=== PATIENT | male | born 1950 | race Caucasian/White ===

== ENCOUNTER 2019-06-08 14:06 | Inpatient (IN) | payer OTHER, BC ==
[2019-06-08] MEDS ORDERED: ASPIRIN 81 MG CHEWABLE TABLETS PO ONE (14:19)
--- NOTE | 2019-06-08 14:19 | PDOC ---
Rapid Medical Evaluation Time Seen by Provider: 06/08/19 14:16 Medical Evaluation: Allergies Allergy/AdvReac Type Severity Reaction Status Date / Time No Known Allergies Allergy Verified 03/04/14 13:11 06/08/19 14:16 HPI: Sent by PCP for abnormal EKG Dr Stern PE: No gross deficits ORDERS: Cardiac work up and CXR EKG with 3 PVC's and sinus tachycardia Discharge Disposition - Diagnosis Abnormal EKG - Referrals - Patient Instructions - Post Discharge Activity
[2019-06-08] MEDS ORDERED: ASPIRIN 81 MG CHEWABLE TABLETS ONE (14:58)
[2019-06-08] MEDS ORDERED: ADENOSINE 6 MG/2 ML VIAL IVPUSH ONE ×3 (15:08→15:12)
[2019-06-08] MEDS ORDERED: dilTIAZem HCL 125 MG/25 ML - 25 ML VIAL ONE (15:22)
[2019-06-08] MEDS ORDERED: dilTIAZem HCL 50 MG/10 ML - 10 ML VIAL IVPUSH ONE (15:25)
[2019-06-08] MEDS ORDERED: dilTIAZem HCL 30 MG TABLET (FP) PO ONE (15:26)
[2019-06-08 15:29] LABS: BASO % 1.1 % (0-2.0); EOS % 3.6 % (0-4.5); HEMATOCRIT 42.5 % (35.4-49); HEMOGLOBIN 14.1 GM/dL (11.7-16.9); LYMPH % 25.8 % (8-40); MCH 32.4 pg (25.7-33.7); MCHC 33.1 g/dl (32.0-35.9); MEAN CELL VOLUME 97.7 fl (80-96); MEAN PLT VOLUME 7.6 fl (7.5-11.1); MONO % 9.8 % (3.8-10.2); NEUT % 59.7 % (42.8-82.8); RBC 4.35 M/mm3 (4.00-5.60); RDW 13.9 % (11.9-15.9)
--- NOTE | 2019-06-08 15:35 | PDOC ---
History of Present Illness - General Chief Complaint: Irregular Heart Beat Stated Complaint: SENT BY PCP / CARDIOLOGY Time Seen by Provider: 06/08/19 14:16 History Source: Patient Exam Limitations: No Limitations - History of Present Illness Initial Comments: 06/08/19 15:28 68 yo male pmh hypertension presents to the ED from PCP office for sinus tach with PVCs. Pt admits to dizzy spells while ambulating a few times over the last week but denies CP, SOB, palpitations, weakness, CH, changes in vision. EKG on arrival to ED shows likely slow SVT with rates in the 130s. Pt is stable, 2 attempts of with vagal maneuvers done (blowing against a closed glottis paired with leg raising) failed to revert rhythm. Decision made to use adenosine 12 mg to either treat SVT or slow rhythm down to diagnose. pt on monitor, 12 lead set up and rhythm strip running. 12 mg adenosine given and rate fell into the 60s then went back up to the 130s. Rhythm strip shows pt is in a flutter when rate dropped. Pt then given 10 Dilt IV and 30 dilt PO BP on arrival in the 160s systilic Past History - Past Medical History Allergies/Adverse Reactions: Allergies Allergy/AdvReac Type Severity Reaction Status Date / Time No Known Allergies Allergy Verified 06/08/19 14:17 Home Medications: Ambulatory Orders Apixaban [Eliquis -] 5 mg PO BID 30 Days #60 tablet 06/10/19 Diltiazem Cd [Cardizem Cd -] 360 mg PO DAILY #30 cap.cd.24h 06/10/19 Anemia: No Asthma: No Cancer: No Cardiac Disorders: No CVA: No COPD: No CHF: No Dementia: No Diabetes: No GI Disorders: Yes (H PYLORI) Disorders: No HTN: Yes Hypercholesterolemia: No Liver Disease: No Seizures: No Thyroid Disease: No - Surgical History Abdominal Surgery: Yes (COLON RESECTION) Appendectomy: No Cardiac Surgery: No Cholecystectomy: No Lung Surgery: No Neurologic Surgery: No Orthopedic Surgery: Yes (R KNEE REPLACEMENT,L SHOULDER ARTHROSCOPY) - Suicide/Smoking/Psychosocial Hx Smoking History: Unknown if ever smoked Have you smoked in the past 12 months: Yes Number of Cigarettes Smoked Daily: 0 Cigars Per Day: 1 Hx Alcohol Use: Yes (SOCIALLY) Drug/Substance Use Hx: No Substance Use Type: Alcohol Hx Substance Use Treatment: No Review of Systems - Review of Systems Constitutional: No: Chills, Fever HEENTM: No: Blurred Vision Respiratory: No: Shortness of Breath Cardiac (ROS): Yes: Lightheadedness (on ambulation intermittenly over the last 1 week). No: Chest Pain, Edema, Irregular Heart Rate, Palpitations ABD/GI: No: Constipated, Diarrhea, Nausea, Vomiting : No: Burning, Dysuria Musculoskeletal: No: Back Pain Integumentary: No: Change in Color Neurological: No: Headache, Numbness, Paresthesia, Weakness, Ataxia *Physical Exam - Vital Signs Last Vital Signs Temp Pulse Resp BP Pulse Ox 97.9 F 133 H 18 157/108 H 97 06/08/19 14:06/08/19 14:06/08/19 14:06/08/19 14:06/08/19 14:19 - Physical Exam General Appearance: Yes: Nourished, Appropriately Dressed. No: Apparent Distress HEENT: positive: EOMI, Normal Voice Neck: positive: Supple. negative: Carotid bruit Respiratory/Chest: positive: Lungs Clear, Normal Breath Sounds. negative: Accessory Muscle Use, Crackles, Rales, Rhonchi, Wheezing Cardiovascular: positive: Tachycardia, Other (A flutter). negative: Edema, JVD , Murmur Vascular Pulses: Dorsalis-Pedis (R): 4+, Doralis-Pedis (L): 4+ Gastrointestinal/Abdominal: positive: Flat, Soft. negative: Distended, Guarding , Rebound Musculoskeletal: positive: Normal Inspection. negative: CVA Tenderness Extremity: positive: Normal Capillary Refill, Normal Inspection Integumentary: positive: Normal Color, Dry, Warm Neurologic: positive: metal model builder II-XII NML intact, Fully Oriented, Alert, Normal Mood/ Affect, Normal Response, Motor Strength / ED Treatment Course - LABORATORY CBC & Chemistry Diagram: 06/09/19 05:30 06/09/19 05:30 - Medications Given in the ED: ED Medications Discontinued Medications Generic Name Dose Route Start Last Admin Trade Name Freq PRN Reason Stop Dose Admin Aspirin 162 mg 06/08/19 14:19 06/08/19 15:05 Asa - PO 06/08/19 14:20 162 mg ONCE ONE Administration Medical Decision Making - Medical Decision Making 06/08/19 16:19 68 yo male pmh hypertension presents to the ED from PCP office for sinus tach with PVCs. Pt admits to dizzy spells while ambulating a few times over the last week but denies CP, SOB, palpitations, weakness, CH, changes in vision. EKG on arrival to ED shows likely slow SVT with rates in the 130s. Pt is stable, 2 attempts of with vagal maneuvers done (blowing against a closed glottis paired with leg raising) failed to revert rhythm. Decision made to use adenosine 12 mg to either treat SVT or slow rhythm down to diagnose. Pt given 325 ASA pt on monitor, 12 lead set up and rhythm strip running. 12 mg adenosine given and rate fell into the 60s then went back up to the 130s. Rhythm strip shows pt is in a flutter when rate dropped. Pt then given 10 Dilt IV and 30 dilt PO BP on arrival in the 160s systilic discussed case with Dr. Borges who agrees to have pt admitted to tele and would like Dr. Lopez consulted to discuss anticoagulation. Dr. Villagomez pupil personnel worker 06/08/19 17:[address] Villagomez who agrees to anticoagulant pt with 5mg BID Eliquis at this time Labs neg for anemia, WBC, trops neg pt admitted to Tele *DC/Admit/Observation/Transfer Diagnosis at time of Disposition: Abnormal EKG, Atrial flutter - Discharge Dispostion Disposition: HOME Condition at time of disposition: Stable Decision to Admit order: Yes - Referrals - Patient Instructions - Post Discharge Activity
[2019-06-08 15:41] LABS: PLATELET COUNT 203 K/MM3 (134-434)
[2019-06-08 15:41] LABS: INR 0.99 (0.83-1.09); PROTHROMBIN TIME (PATIENT) 11.7 SEC (9.7-13.0)
--- NOTE | 2019-06-08 15:49 | PDOC ---
Documentation entered by Jayro Breen SCRIBE, acting as scribe for Linden Campbell MD. Linden Campbell MD: This documentation has been prepared by the Nuha quick Elijah, SCRIBE, under my direction and personally reviewed by me in its entirety. I confirm that the documentation accurately reflects all work, treatment, procedures, and medical decision making performed by me. Attending Attestation - Resident Resident Name: Sixto No - ED Attending Attestation I have performed the following: I have examined & evaluated the patient, The case was reviewed & discussed with the resident, I agree w/resident's findings & plan, Exceptions are as noted - HPI HPI: 06/08/19 14:58 Patient is a 68 year old male with a significant past medical history of hypertension and gastric ulcers who is sent to the ED for evaluation of tachycardia. Pt denies any symptoms at this time. States that he was at his PMD Dr. Stern's office for routine check up (needed his BP meds refilled), when he was found to have a HR in the 130s. Pt denies CP/SOB/palpitations. He denies any h/o arrhythmia. Patient notes he has not taken his blood pressure medication for x4 days due to running out. Allergies: NKA PCP: Dr. Stern - Physicial Exam PE: 06/08/19 14:58 GENERAL: Awake, alert, and fully oriented, in no acute distress. HEAD: No signs of trauma EYES: PERRLA, EOMI, sclera anicteric, conjunctiva clear ENT: Auricles normal inspection, hearing grossly normal, nares patent, oropharynx clear without exudates. Moist mucosa NECK: Nontender, no stepoffs, Normal ROM, supple, no lymphadenopathy, JVD, or masses LUNGS: Breath sounds equal, clear to auscultation bilaterally. No wheezes, and no crackles HEART: tachycardic, normal S1 and S2, no murmurs, rubs or gallops ABDOMEN: Soft, nontender, normoactive bowel sounds. No guarding, no rebound. No masses EXTREMITIES: Normal range of motion, no edema. No clubbing or cyanosis. No cords, erythema, or tenderness NEUROLOGICAL: Cranial nerves II through XII intact. 5/5 strength and sensation in all extremities, Normal speech, normal gait, normal cerebellar function SKIN: Warm, Dry, normal turgor, no rashes or lesions noted. - Critical Care Time Total Critical Care Time: 60 Critical Care Statement: The care of this patient involved high complexity decision making to prevent further life threatening deterioration of the patient 's condition and/or to evaluate & treat vital organ system(s) failure or risk of failure. - Medical Decision Making 06/08/19 15:43 68 M with tachycardia. EKG initially showed SVT rate 130. After adenosine administration, sawtooth P-waves became visible. Pt given dilt 10mg IV, with improvement in HR to 90. Repeat EKG now shows aflutter with variable conduction - Labs, trop, coags - Aspirin - Admit for cards eval
[2019-06-08 15:55] LABS: ALBUMIN 4.1 g/dl (3.4-5.0); ALK PHOS 43 U/L (45-117); ANION GAP 7 MMOL/L (8-16); BILIRUBIN,TOTAL 0.6 mg/dL (0.2-1); BLOOD UREA NITROGEN 12.4 mg/dL (7-18); CALCIUM 8.8 mg/dL (8.5-10.1); CHLORIDE 108 mmol/L (98-107); CO2 26 mmol/L (21-32); CREATININE 0.9 mg/dL (0.55-1.3); GLUCOSE,RANDOM 91 mg/dL (74-106); MAGNESIUM 2.3 mg/dL (1.8-2.4); POTASSIUM 3.9 mmol/L (3.5-5.1); SGOT/AST 19 U/L (15-37); SGPT/ALT 38 U/L (13-61); SODIUM 141 mmol/L (136-145)
[2019-06-08] MEDS ORDERED: dilTIAZem HCL 30 MG TABLET (FP) ONE (16:04)
--- NOTE | 2019-06-08 17:31 | CON.CARD ---
Cardiology Consult (text) - Consultation Consultation Note: cc: tachycardia hpi: 68 m hx htn sent from pmd office with tachycardia. No prior hx hrt dz. Over past few weeks has had 2 episodes of sob with mild activity along with mild dizziness that both resolved after a few mins. No cp palps loc pnd orthopnea le edema. Had pmd visit today and tachy so sent to ER and found to have aflutter with rvr. pmh: per hpi psh: knee surgery social: no tob fam: no premature cad, scd; 2 brothers of his have afib and needed ablation ros: per hpi; all others normal meds: Home Medications Medication Instructions Recorded Amlodipine Besylate [Norvasc -] 10 mg PO DAILY 06/08/19 pe: Vital Signs Period Temp Pulse Resp BP Sys/Minor Pulse Ox Last 24 Hr 97.9 F 102-133 18-20 148-157/108-111 97 nad no jvd irreg s1s2 no mrg cta bl nl eff aao3 no le e/c/c abd nt nd pos bs no jaundice diaphoresis pos dp pt no carotid bruits 06/08/19 06/08/19 06/08/19 15:00 15:00 15:06 WBC 7.0 RBC 4.35 Hgb 14.1 Hct 42.5 MCV 97.7 H MCHC 33.1 RDW 13.9 Plt Count 203 Neutrophils % 59.7 Lymphocytes % 25.8 Monocytes % 9.8 Eosinophils % 3.6 Basophils % 1.1 INR 0.99 Sodium 141 Potassium 3.9 Chloride 108 H Carbon Dioxide 26 Anion Gap 7 L BUN 12.4 Creatinine 0.9 ecg: aflutter, vr 130s, nl qtc, no ischemic changes a/p: 68 m hx htn sent from pmd office with tachycardia. sob, aflutter with rvr: -pt with newly diagnosed symptomatic aflutter with rvr here -no signs acs or chf -feeling better after rate control -will start po dilt for rate control, monitor on tele -check echo, tsh -chadsvasc warrants AC. Pt has no bleeding issues. Discussed risks/benefits with pt, he is agreeable, will start eliquis 5 bid. htn: -monitor with dilt, dc home norvasc
[2019-06-08] MEDS: APIXABAN 5 MG TABLET PO SCH (21:33)
[2019-06-08 22:03] VITALS: BMI 31.7
[2019-06-09 07:31] LABS: BASO % 1.3 % (0-2.0); EOS % 5.1 % (0-4.5); HEMATOCRIT 39.2 % (35.4-49); HEMOGLOBIN 13.3 GM/dL (11.7-16.9); LYMPH % 27.6 % (8-40); MCHC 33.9 g/dl (32.0-35.9); MEAN CELL VOLUME 97.4 fl (80-96); MEAN PLT VOLUME 7.8 fl (7.5-11.1); PLATELET COUNT 184 K/MM3 (134-434); RBC 4.03 M/mm3 (4.00-5.60); RDW 13.5 % (11.9-15.9); WHITE BLOOD COUNT 5.3 K/mm3 (4.0-10.0)
[2019-06-09 08:00] LABS: ALBUMIN 3.5 g/dl (3.4-5.0); ALK PHOS 41 U/L (45-117); ANION GAP 6 MMOL/L (8-16); BILIRUBIN,TOTAL 0.7 mg/dL (0.2-1); BLOOD UREA NITROGEN 11.6 mg/dL (7-18); CALCIUM 8.4 mg/dL (8.5-10.1); CHLORIDE 108 mmol/L (98-107); CO2 29 mmol/L (21-32); CREATININE 0.9 mg/dL (0.55-1.3); GLUCOSE,RANDOM 95 mg/dL (74-106); POTASSIUM 3.9 mmol/L (3.5-5.1); SGOT/AST 16 U/L (15-37); SGPT/ALT 34 U/L (13-61); SODIUM 142 mmol/L (136-145); TOT PROT 6.3 g/dl (6.4-8.2)
[2019-06-09] MEDS: APIXABAN 5 MG TABLET PO SCH ×2 (09:17→21:33)
[2019-06-09 12:11] LABS: CHOLESTEROL 169 mg/dL (50-200); HDL CHOLESTEROL 43 mg/dL (40-60); TRIGLYCERIDES 135 mg/dL (0-150)
--- NOTE | 2019-06-09 12:34 | HP ---
Admitting History and Physical - Smoking History Smoking history: Former smoker Have you smoked in the past 12 months: Yes Aproximately how many cigarettes per day: 0 - Alcohol/Substance Use Hx Alcohol Use: Yes (SOCIALLY) Home Medications - Allergies Allergies/Adverse Reactions: Allergies Allergy/AdvReac Type Severity Reaction Status Date / Time No Known Allergies Allergy Verified 06/08/19 14:17 - Home Medications Home Medications: Ambulatory Orders Amlodipine Besylate [Norvasc -] 10 mg PO DAILY 06/08/19 Physical Examination Vital Signs: Vital Signs Temperature 98.4 F 06/09/19 11:15 Pulse Rate 119 H 06/09/19 11:15 Respiratory Rate 20 06/09/19 11:15 Blood Pressure 149/74 06/09/19 11:15 O2 Sat by Pulse Oximetry (%) 96 06/09/19 09:00 Labs: CBC, BMP 06/09/19 05:30 06/09/19 05:30
--- NOTE | 2019-06-09 12:52 | PN ---
Progress Note (short form) - Note Progress Note: s: no cp sob palps dizzy o: Vital Signs Period Temp Pulse Resp BP Sys/Minor Pulse Ox Last 24 Hr 97.9 F-98.4 F 90-133 18-20 148-157/74-115 94-100 nad no jvd irreg s1s2 no mrg cta bl nl eff aao3 no le e/c/c abd nt nd pos bs no jaundice diaphoresis Current Medications Generic Name Dose Route Start Last Admin Trade Name Freq PRN Reason Stop Dose Admin Apixaban 5 mg 06/08/19 22:00 06/09/19 09:17 Eliquis - PO 5 mg BID LOIS Administration Diltiazem HCl 180 mg 06/09/19 10:00 06/09/19 09:17 Cardizem Cd - PO 180 mg DAILY LOIS Administration Fluticasone Propionate 2 spray 06/09/19 12:45 Flonase - NS DAILY LOIS CBC, BMP 06/09/19 05:30 06/09/19 05:30 ecg: aflutter, vr 130s, nl qtc, no ischemic changes tele: aflutter, 100s a/p: 68 m hx htn sent from pmd office with tachycardia. sob, aflutter with rvr: -pt with newly diagnosed symptomatic aflutter with rvr here -no signs acs or chf -feeling better after rate control -will start po dilt for rate control, monitor on tele -check echo -tsh wnl -chadsvasc warrants AC. Pt has no bleeding issues. Discussed risks/benefits with pt, he is agreeable, started eliquis 5 bid. htn: -monitor with dilt, dc home norvasc if echo benign and rate is controlled then pt ok for dc later today from cardiac pov
--- NOTE | 2019-06-09 13:54 | ECHO ---
Name: PEREZ MONTERO Exam:Adult Echocardiogram Study Date: 06/09/2019 11:23 AM Age: 68 yrs Reason For Study: ATRIAL FLUTTER Height: 70 in Weight: 200 lb BSA: 2.1 m2 MMode/2D Measurements & Calculations IVSd: 0.90 cm Ao root diam: 3.1 cm LVIDd: 5.2 cm LVIDs: 3.7 cm LVPWd: 0.83 cm EDV(Teich): 127.5 ml LVOT diam: 2.3 cm ESV(Teich): 58.6 ml Doppler Measurements & Calculations MV E max see: 85.9 cm/sec Ao V2 max: 112.5 cm/sec MV A max see: 25.2 cm/sec Ao max P.1 mmHg MV E/A: 3.4 ELIJAH(V,D): 2.8 cm2 LV V1 max P.3 mmHg MR max see: 451.3 cm/sec LV V1 mean P.0 mmHg MR max P.5 mmHg LV V1 max: 76.2 cm/sec LV V1 mean: 46.7 cm/sec LV V1 VTI: 15.5 cm SV(LVOT): 63.4 ml TR max see: 257.2 cm/sec TR max P.9 mmHg Med Peak E' See: 10.0 cm/sec Med E/e': 8.6 Lat Peak E' See: 9.7 cm/sec Lat E/e': 8.8 Procedure A complete two-dimensional transthoracic echocardiogram was performed (2D, M-mode, Doppler and color flow Doppler). The patient was in atrial flutter during the exam. Left Ventricle The left ventricular size, thickness and function are normal. The left ventricular ejection fraction is normal. Ejection Fraction = 55-60%. The left ventricular wall motion is normal. Right Ventricle The right ventricle is normal in size and function. Atria Normal left and right atrial size and function. Mitral Valve There is trace mitral regurgitation. Tricuspid Valve No tricuspid regurgitation. There was insufficient TR detected to calculate RV systolic pressure. Aortic Valve No hemodynamically significant valvular aortic stenosis. No aortic regurgitation is present. Pulmonic Valve There is no pulmonic valvular regurgitation. Great Vessels The aortic root is normal size. Pericardium/Pleura There is no pericardial effusion. Interpretation Summary The patient was in atrial flutter during the exam. The left ventricular size, thickness and function are normal The right ventricle is normal in size and function. There is trace mitral regurgitation. MD Dank Ruffin 06/09/2019 01:53 PM
[2019-06-09] MEDS ORDERED: PT OWN MED DRAWER 7, Y5N ONE (15:13)
[2019-06-09] MEDS: FLUTICASONE PROP 0.05% 16 GM NASAL SPRAY NS SCH (15:18)
--- NOTE | 2019-06-09 17:02 | EKG ---
Test Reason : Blood Pressure : / mmHG Vent. Rate : 133 BPM Atrial Rate : 141 BPM P-R Int : 000 ms QRS Dur : 098 ms QT Int : 322 ms P-R-T Axes : 000 019 020 degrees QTc Int : 479 ms SUPRAVENTRICULAR TACHYCARDIA WITH OCCASIONAL PREMATURE VENTRICULAR COMPLEXES OTHERWISE NORMAL ECG NO PREVIOUS ECGS AVAILABLE Confirmed by ELIANA NAVARRO, CATHI ([id number]) on 06/09/2019 5:02:24 PM Referred By: Confirmed By:CATHI MONROY MD
[2019-06-10 09:04] VITALS: BP 134/84; PULSE 80; TEMP 98
--- NOTE | 2019-06-10 09:29 | PN ---
Progress Note, Physician Chief Complaint: No CP, SOB or palps TELE: AFL average rates well under 100bpm. - Current Medication List Current Medications: Active Medications Apixaban (Eliquis -) 5 mg PO BID [facility] Last Admin: 06/09/19 21:33 Dose: 5 mg Diltiazem HCl (Cardizem Cd -) 360 mg PO DAILY [facility] Fluticasone Propionate (Flonase -) 2 spray NS DAILY [facility] Last Admin: 06/09/19 15:18 Dose: 2 sprays - Objective Vital Signs: Vital Signs Temperature 98 F 06/10/19 09:00 Pulse Rate 80 06/10/19 09:00 Respiratory Rate 18 06/10/19 09:00 Blood Pressure 134/84 06/10/19 09:00 O2 Sat by Pulse Oximetry (%) 97 06/09/19 21:00 Constitutional: Yes: No Distress Cardiovascular: Yes: Regular Rate and Rhythm Respiratory: Yes: CTA Bilaterally (no wheezing or rales) Gastrointestinal: Yes: Soft (NT) Edema: No Peripheral Pulses WNL: Yes Neurological: Yes: Alert, Oriented ...Motor Strength: WNL Labs: CBC, BMP 06/09/19 05:30 06/09/19 05:30 INR, PTT INR 0.99 (0.83-1.09) 06/08/19 15:00 Laboratory Tests 06/08/19 06/08/19 06/09/19 15:00 20:45 02:58 Sodium Potassium Creatinine Troponin I < 0.02 < 0.02 < 0.02 TSH 06/09/19 05:30 Sodium 142 Potassium 3.9 Creatinine 0.9 Troponin I < 0.02 TSH 1.66 D - ....Imaging EKG: Image Reviewed Assessment/Plan DATA: ecg: aflutter, vr 130s, nl qtc, no ischemic changes tele: aflutter, 100s Echo: normal biV fxn, no sig valve. IMP/REC: a/p: 68 m hx htn sent from pmd office with tachycardia. 1.Aflutter with rvr: now controlled, w/ normal LV/RV fxn and negative cardiac enzymes -Ok to discharge home today on current dose Cardizem CD and Eliquis 5mg BID- need to assure covered as outpt 2. HTN: -monitor with dilt, dc home norvasc i
[2019-06-10] MEDS: APIXABAN 5 MG TABLET PO SCH (09:46)
[2019-06-10] MEDS: FLUTICASONE PROP 0.05% 16 GM NASAL SPRAY NS SCH (09:49)
--- NOTE | 2019-06-10 13:56 | DS ---
Physical Examination Vital Signs: Vital Signs Temperature 98 F 06/10/19 09:00 Pulse Rate 80 06/10/19 09:00 Respiratory Rate 18 06/10/19 09:00 Blood Pressure 134/84 06/10/19 09:00 O2 Sat by Pulse Oximetry (%) 97 06/10/19 09:00 Findings/Remarks: pt seen/ examined chart reviewed comfortable no complains Constitutional: Yes: No Distress, Calm, Obese Eyes: Yes: Conjunctiva Clear Neck: Yes: Supple Cardiovascular: Yes: Pulse Irregular. No: Regular Rate and Rhythm Respiratory: Yes: CTA Bilaterally Gastrointestinal: Yes: Soft, Abdomen, Obese Edema: No Neurological: Yes: Alert Psychiatric: Yes: Alert Labs: CBC, BMP 06/09/19 05:30 06/09/19 05:30 Discharge Summary Reason For Visit: ATRIAL FLUTTER Current Active Problems Abnormal EKG (Acute) Atrial flutter (Acute) Hospital Course: Send by from office for sinus tachy/ svt found to have aflutter Monitored on tele started on A/C cardiology followed echo- Unremarkable stable d/c home f/u in office meds send to pharmacy compliance stressed Pt in agreement discussed with nursing staff also Condition: Stable - Instructions Diet, Activity, Other Instructions: low salt diet f/u in office one week Referrals: Milton Villagomez MD [Staff Physician] - Disposition: HOME - Home Medications Comprehensive Discharge Medication List: Ambulatory Orders Apixaban [Eliquis -] 5 mg PO BID 30 Days #60 tablet 06/10/19 Diltiazem Cd [Cardizem Cd -] 360 mg PO DAILY #30 cap.cd.24h 06/10/19
--- NOTE | 2019-07-26 09:37 | EKG ---
Test Reason : Blood Pressure : / mmHG Vent. Rate : 134 BPM Atrial Rate : 150 BPM P-R Int : 000 ms QRS Dur : 090 ms QT Int : 300 ms P-R-T Axes : 000 011 048 degrees QTc Int : 448 ms ATRIAL FLUTTER WITH 2 TO 1 BLOCK SEPTAL INFARCT , AGE UNDETERMINED ABNORMAL ECG Confirmed by Ruben Corrales MD ([id number]) on 07/26/2019 9:37:23 AM Referred By: Confirmed By:Ruben Corrales MD
--- NOTE | 2019-07-26 09:37 | EKG ---
Test Reason : Blood Pressure : / mmHG Vent. Rate : 091 BPM Atrial Rate : 277 BPM P-R Int : 000 ms QRS Dur : 106 ms QT Int : 402 ms P-R-T Axes : 267 021 039 degrees QTc Int : 494 ms ATRIAL FLUTTER WITH VARIABLE A-V BLOCK WITH PREMATURE VENTRICULAR OR ABERRANTLY CONDUCTED COMPLEXES CANNOT RULE OUT ANTERIOR INFARCT (CITED ON OR BEFORE 08-JUN-2019) ABNORMAL ECG Confirmed by Ruben Corrales MD ([id number]) on 07/26/2019 9:36:51 AM Referred By: Confirmed By:Ruben Corrales MD
== END 2019-06-10 14:12 | disposition home or self-care (01) | DRG 310 ==
LOC: JER 14:06 → SUPCPDRO 14:06 → JERBED 16:17 → J4W 20:32 → OBSVTOIN 06-09 12:32
PROVIDERS: ADMIT Internal Medicine; ATTEND Internal Medicine
DX: I48.92 Unspecified atrial flutter (principal); I10 Essential (primary) hypertension; I47.1 Supraventricular tachycardia; R94.31 Abnormal electrocardiogram [ECG] [EKG]; Z96.651 Presence of right artificial knee joint
CPT/HCPCS: 36415; 71046-TC-FY; 80053; 80061; 82550; 82553; 83721; 83735; 84439; 84443; 84484; 85025; 85610; 93005; 93010; 93306-TC; 99284-25; G0378

== ENCOUNTER 2021-03-25 16:51 | Observation (INO) | payer OTHER, BC ==
[2021-03-25 17:02] VITALS: BMI 28.5
[2021-03-25] MEDS ORDERED: ACETAMINOPHEN 500 MG TABLET (FP) PO ONE (17:50)
[2021-03-25 18:15] LABS: EOS % 2.9 % (0-4.5); HEMATOCRIT 41.7 % (35.4-49); HEMOGLOBIN 14.2 GM/dL (11.7-16.9); LYMPH % 20.5 % (8-40); MCH 34.3 pg (25.7-33.7); MCHC 33.9 g/dl (32.0-35.9); MEAN PLT VOLUME 7.9 fl (7.5-11.1); MONO % 8.8 % (3.8-10.2); NEUT % 66.8 % (42.8-82.8); PLATELET COUNT 180 K/MM3 (134-434); RBC 4.13 M/mm3 (4.00-5.60); RDW 13.6 % (11.9-15.9); WHITE BLOOD COUNT 6.2 K/mm3 (4.0-10.0)
[2021-03-25 18:22] LABS: PROTHROMBIN TIME (PATIENT) 12.3 SEC (9.7-13.0)
[2021-03-25 18:24] LABS: ACTIVATED PTT 32.9 SECONDS (25.2-36.5)
[2021-03-25 18:26] LABS: CHLORIDE 107 mmol/L (98-107); SODIUM 140 mmol/L (136-145)
[2021-03-25] MEDS ORDERED: ACETAMINOPHEN 500 MG TABLET (FP) ONE (18:27)
[2021-03-25 18:28] LABS: ANION GAP 6 MMOL/L (8-16); BLOOD UREA NITROGEN 19.2 mg/dL (7-18); CO2 26 mmol/L (21-32)
[2021-03-25 18:29] LABS: GLUCOSE,RANDOM 90 mg/dL (74-106)
[2021-03-25 18:31] LABS: SGPT/ALT 32 U/L (13-61)
[2021-03-25 18:32] LABS: CREATININE 1.1 mg/dL (0.55-1.3); SGOT/AST 21 U/L (15-37)
[2021-03-25 18:33] LABS: BILIRUBIN,TOTAL 0.6 mg/dL (0.2-1); TOT PROT 6.8 g/dl (6.4-8.2)
[2021-03-25 18:34] LABS: ALK PHOS 41 U/L (45-117)
[2021-03-25 18:36] LABS: N-TERMINAL BNP 363.3 pg/ml (5-125)
[2021-03-25] MEDS ORDERED: ALBUTEROL SO4 HFA INHALER IH PRN (20:19)
[2021-03-25] MEDS ORDERED: ATORVASTATIN CA 40 MG TABLET (FP) PO SCH (22:00)
[2021-03-25] MEDS ORDERED: APIXABAN 5 MG TABLET ONE (22:24)
[2021-03-25] MEDS ORDERED: ATORVASTATIN CA 40 MG TABLET (FP) ONE (22:24)
[2021-03-25] MEDS: SACUBITRIL/VALSARTAN 97 MG-103 MG TABLET PO SCH (22:37)
[2021-03-25] MEDS: APIXABAN 5 MG TABLET PO SCH (22:37)
[2021-03-25] MEDS ORDERED: guaiFENesin/CODEINE 5 ML UNIT-DOSE CUPS PO ONE ×2 (23:23→23:33)
[2021-03-25] MEDS ORDERED: ALBUTEROL SO4 HFA INHALER IH ONE ×2 (23:33)
[2021-03-26] MEDS ORDERED: MELATONIN 5 MG TABLETS ONE (00:49)
[2021-03-26] MEDS ORDERED: MELATONIN 5 MG TABLETS PO PRN (00:53)
[2021-03-26] MEDS ORDERED: MELATONIN 5 MG TABLETS PO ONE (00:53)
[2021-03-26 07:14] LABS: BASO % 0.8 % (0-2.0); EOS % 4.5 % (0-4.5); HEMATOCRIT 40.1 % (35.4-49); HEMOGLOBIN 13.8 GM/dL (11.7-16.9); MCH 34.7 pg (25.7-33.7); MCHC 34.4 g/dl (32.0-35.9); MEAN PLT VOLUME 7.3 fl (7.5-11.1); MONO % 8.7 % (3.8-10.2); PLATELET COUNT 150 K/MM3 (134-434); RBC 3.97 M/mm3 (4.00-5.60); RDW 13.5 % (11.9-15.9); WHITE BLOOD COUNT 4.3 K/mm3 (4.0-10.0)
[2021-03-26 07:35] LABS: CHLORIDE 109 mmol/L (98-107); SODIUM 141 mmol/L (136-145)
[2021-03-26 07:38] LABS: CALCIUM 8.5 mg/dL (8.5-10.1)
[2021-03-26 07:39] LABS: ALBUMIN 3.6 g/dl (3.4-5.0); ANION GAP 5 MMOL/L (8-16); BLOOD UREA NITROGEN 13.6 mg/dL (7-18); CO2 27 mmol/L (21-32); GLUCOSE,RANDOM 89 mg/dL (74-106); MAGNESIUM 2.1 mg/dL (1.8-2.4)
[2021-03-26 07:42] LABS: CREATININE 0.8 mg/dL (0.55-1.3); SGOT/AST 19 U/L (15-37); SGPT/ALT 27 U/L (13-61)
[2021-03-26 07:43] LABS: BILIRUBIN,TOTAL 1.6 mg/dL (0.2-1); TOT PROT 6.2 g/dl (6.4-8.2)
[2021-03-26 07:45] LABS: ALK PHOS 40 U/L (45-117)
[2021-03-26] MEDS ORDERED: CYANOCOBALAMIN 1,000 MCG TABLET (FP) PO SCH (10:00)
[2021-03-26] MEDS: SACUBITRIL/VALSARTAN 97 MG-103 MG TABLET PO SCH (12:21)
[2021-03-26] MEDS: APIXABAN 5 MG TABLET PO SCH (12:21)
[2021-03-26] MEDS ORDERED: APIXABAN 5 MG TABLET ONE (12:22)
[2021-03-26 14:14] VITALS: BP 131/70; PULSE 51; TEMP 97.9
[2021-03-26] MEDS ORDERED: MELATONIN 1 MG TABLET PO ONE (23:23)
== END 2021-03-26 14:22 | disposition home or self-care (01) ==
LOC: JER 16:51 → JERBED 17:52
PROVIDERS: ADMIT Internal Medicine; ATTEND Internal Medicine
DX: I11.0 Hypertensive heart disease with heart failure (principal); E78.5 Hyperlipidemia, unspecified; R07.9 Chest pain, unspecified; J44.9 Chronic obstructive pulmonary disease, unspecified; Z20.822 Contact with and (suspected) exposure to COVID-19; I50.9 Heart failure, unspecified; I48.91 Unspecified atrial fibrillation; R14.2 Eructation; Z88.8 Allergy status to other drugs, medicaments and biological substances
CPT/HCPCS: 36415; 71046-TC-FY; 80053; 83735; 83880; 84443; 84484; 85025; 85379; 85610; 85730; 93005; 93010; 99285-25; C9803; G0378; U0003; U0005

== ENCOUNTER 2023-04-02 04:19 | Day surgery (SDC) | payer OTHER, BC ==
[2023-04-01 13:35] VITALS: BMI 27.8
[2023-04-02 12:42] VITALS: TEMP 98
[2023-04-02 13:19] VITALS: BP 135/76; PULSE 62; RESP 18
== END 2023-04-02 13:33 | disposition home or self-care (01) ==
LOC: JASU-ENDO 04:19
PROVIDERS: ATTEND Internal Medicine Gastroenterology
PROC: 0DBH8ZX Excision of Cecum, Via Natural or Artificial Opening Endoscopic, Diagnostic (ICD-10-PCS; 2023-04-02)
PROC: 0DB28ZX Excision of Middle Esophagus, Via Natural or Artificial Opening Endoscopic, Diagnostic (ICD-10-PCS; 2023-04-02)
PROC: 0DB78ZX Excision of Stomach, Pylorus, Via Natural or Artificial Opening Endoscopic, Diagnostic (ICD-10-PCS; 2023-04-02)
PROC: 0DB68ZX Excision of Stomach, Via Natural or Artificial Opening Endoscopic, Diagnostic (ICD-10-PCS; 2023-04-02)
PROC: 0DBK8ZX Excision of Ascending Colon, Via Natural or Artificial Opening Endoscopic, Diagnostic (ICD-10-PCS; principal; 2023-04-02 11:30)
DX: Z12.11 Encounter for screening for malignant neoplasm of colon (principal); D12.0 Benign neoplasm of cecum; D12.2 Benign neoplasm of ascending colon; K64.8 Other hemorrhoids; K57.30 Diverticulosis of large intestine without perforation or abscess without bleeding; K29.50 Unspecified chronic gastritis without bleeding; K21.00 Gastro-esophageal reflux disease with esophagitis, without bleeding; Z98.0 Intestinal bypass and anastomosis status
CPT/HCPCS: 88305-TC; 88342-TC

== ENCOUNTER 2024-01-29 16:18 | Observation (INO) | payer OTHER, BC ==
[2024-01-29 17:26] LABS: WHITE BLOOD COUNT 5.5 K/mm3 (4.0-10.0)
[2024-01-29 17:32] LABS: BASO % 1.1 % (0-2.0); EOS % 2.7 % (0-4.5); HEMATOCRIT 45.5 % (35.4-49); HEMOGLOBIN 15.1 GM/dL (11.7-16.9); LYMPH % 24.4 % (8-40); MCH 32.9 pg (25.7-33.7); MCHC 33.1 g/dl (32.0-35.9); MEAN CELL VOLUME 99.5 fl (80-96); MEAN PLT VOLUME 7.1 fl (7.5-11.1); NEUT % 59.8 % (42.8-82.8); PLATELET COUNT 209 10^3/uL (134-434); RBC 4.57 M/mm3 (4.00-5.60); RDW 13.9 % (11.9-15.9)
[2024-01-29 17:33] LABS: INR 1.08 (0.83-1.09); PROTHROMBIN TIME (PATIENT) 12.5 SEC (9.7-13.0)
[2024-01-29 17:36] LABS: ACTIVATED PTT 34.5 SECONDS (25.2-36.5)
[2024-01-29 17:56] LABS: CALCIUM 8.9 mg/dL (8.5-10.1)
[2024-01-29 17:57] LABS: ALBUMIN 3.4 g/dl (3.4-5.0); BLOOD UREA NITROGEN 17.4 mg/dL (7-18)
[2024-01-29] MEDS ORDERED: ACETAMINOPHEN INJECTION 100 ML IVPB ONE (17:58)
[2024-01-29 18:00] LABS: CREATININE 0.9 mg/dL (0.55-1.3)
[2024-01-29 18:02] LABS: BILIRUBIN,TOTAL 0.5 mg/dL (0.2-1); TOT PROT 6.5 g/dl (6.4-8.2)
[2024-01-29 18:05] LABS: N-TERMINAL BNP 1123.5 pg/ml (5-125)
[2024-01-29] MEDS: ACETAMINOPHEN 1000 MG/100 ML BAG IVPB ONE (18:06)
[2024-01-29] MEDS ORDERED: DOCUSATE SODIUM 100 MG CAPSULE (FP) PO PRN (20:27)
[2024-01-29 20:48] LABS: MAGNESIUM 2.1 mg/dL (1.8-2.4)
[2024-01-29 20:52] LABS: PHOSPHOROUS 3.3 mg/dL (2.5-4.9)
[2024-01-29] MEDS ORDERED: ALBUTEROL SO4 HFA INHALER IH PRN (23:28)
[2024-01-30] MEDS ORDERED: ACETAMINOPHEN 1000 MG/100 ML BAG IVPB PRN
[2024-01-30] MEDS: APIXABAN 5 MG TABLET PO SCH (00:08)
[2024-01-30 03:57] VITALS: BMI 27.0
[2024-01-30 07:44] LABS: POTASSIUM 4.5 mmol/L (3.5-5.1)
[2024-01-30 07:46] LABS: CALCIUM 9.1 mg/dL (8.5-10.1)
[2024-01-30 07:47] LABS: BLOOD UREA NITROGEN 12.7 mg/dL (7-18)
[2024-01-30 07:50] LABS: CREATININE 0.9 mg/dL (0.55-1.3)
[2024-01-30 09:00] LABS: BASO % 0.9 % (0-2.0); HEMATOCRIT 44.9 % (35.4-49); HEMOGLOBIN 14.8 GM/dL (11.7-16.9); LYMPH % 28.8 % (8-40); MCHC 32.9 g/dl (32.0-35.9); MEAN CELL VOLUME 100.3 fl (80-96); MEAN PLT VOLUME 7.4 fl (7.5-11.1); MONO % 9.6 % (3.8-10.2); NEUT % 57.7 % (42.8-82.8); PLATELET COUNT 195 10^3/uL (134-434); RBC 4.48 M/mm3 (4.00-5.60); RDW 13.8 % (11.9-15.9); WHITE BLOOD COUNT 5.5 K/mm3 (4.0-10.0)
[2024-01-30] MEDS: amLODIPine BESYLATE 5 MG TABLET (FP) PO SCH (09:36)
[2024-01-30] MEDS: CARVEDILOL 12.5 MG TABLET (FP) PO SCH (09:36)
[2024-01-30] MEDS: SACUBITRIL/VALSARTAN 97 MG-103 MG TABLET PO SCH (09:36)
[2024-01-30] MEDS: DAPAGLIFLOZIN 10 MG PO SCH (12:08)
[2024-01-30] MEDS: ATORVASTATIN CA 40 MG TABLET (FP) PO SCH (21:03)
[2024-01-31] MEDS ORDERED: ACETAMINOPHEN 325 MG TABLET (FP) PO PRN (00:01)
[2024-01-31 07:23] VITALS: RESP 18
[2024-01-31 11:11] VITALS: BP 118/72; PULSE 86; TEMP 98.8
== END 2024-01-31 11:16 | disposition home or self-care (01) ==
LOC: JER 16:18 → JERBED 20:30 → J4S 01-30 03:49
PROVIDERS: ADMIT Internal Medicine; ATTEND Internal Medicine
PROC: 3E033NZ Introduction of Analgesics, Hypnotics, Sedatives into Peripheral Vein, Percutaneous Approach (ICD-10-PCS; principal; 2024-01-29)
DX: I48.91 Unspecified atrial fibrillation (principal); E78.5 Hyperlipidemia, unspecified; I11.0 Hypertensive heart disease with heart failure; J44.9 Chronic obstructive pulmonary disease, unspecified; K29.70 Gastritis, unspecified, without bleeding; Z96.651 Presence of right artificial knee joint; J30.1 Allergic rhinitis due to pollen; Z91.013 Allergy to seafood
CPT/HCPCS: 0241U-QW; 36415; 71046-TC-FY; 80048; 80053; 83735; 83880; 84100; 84439; 84443; 84484; 85025; 85610; 85730; 86850; 86900; 86901; 93005; 93010; 96374; 99285-25; G0378; J0131

== ENCOUNTER 2025-04-13 06:52 | Day surgery (SDC) | payer OTHER, BC ==
[2025-04-12 10:42] VITALS: BMI 25.4
[2025-04-13 08:54] VITALS: TEMP 97.6
[2025-04-13 09:04] VITALS: RESP 18
[2025-04-13 10:06] VITALS: BP 151/68; PULSE 54
== END 2025-04-13 09:40 | disposition home or self-care (01) ==
LOC: JASU-ENDO 06:52
PROVIDERS: ATTEND Internal Medicine Gastroenterology
PROC: 0DB28ZX Excision of Middle Esophagus, Via Natural or Artificial Opening Endoscopic, Diagnostic (ICD-10-PCS; 2025-04-13)
PROC: 0DB38ZX Excision of Lower Esophagus, Via Natural or Artificial Opening Endoscopic, Diagnostic (ICD-10-PCS; principal; 2025-04-13 08:00)
DX: R13.10 Dysphagia, unspecified (principal)
CPT/HCPCS: 82962; 88305-TC; 88312-TC